=== PATIENT | male | born 1945 | race Caucasian/White ===

== ENCOUNTER 2021-05-31 09:20 | Inpatient (IN) | payer MEDICARE, OTHER ==
[2021-05-26 11:59] LABS: BASOPHILS % (AUTO) 0.6 % (0-1); EOSINOPHILS # (AUTO) 0.1 X10'3 (0-0.9); EOSINOPHILS % (AUTO) 1.3 % (0-6); LYMPHOCYTES # (AUTO) 1.5 X10'3 (1.1-4.8); LYMPHOCYTES % (AUTO) 27.2 % (21-51); MEAN CORPUSCULAR VOLUME 97.2 FL (78-98); MEAN PLATELET VOLUME 8.4 FL (7.4-10.4); MONOCYTES # (AUTO) 0.7 X10'3 (0-0.9); MONOCYTES % (AUTO) 13.2 % (2-12); NEUTROPHILS # (AUTO) 3.1 X10'3 (1.8-7.7); NEUTROPHILS % (AUTO) 57.7 % (42-75); PRE OP HEMATOCRIT 43.1 % (42.0-52.0); PRE OP HEMOGLOBIN 14.6 g/dL (14.0-17.9); PRE OP PLATELET COUNT 205 X10'3 (140-440); RED BLOOD COUNT 4.44 X10'6 (4.70-6.10); RED CELL DISTRIBUTION WIDTH 13.1 % (11.5-14.5)
[2021-05-26 12:11] LABS: CLARITY,URINE CLOUDY (Clear); COLOR,URINE YELLOW (Yellow); GLUCOSE, URINE NEGATIVE (Neg); KETONES,URINE NEGATIVE (Neg); LEUKOCYTE ESTERASE ,URINE NEGATIVE (Neg); NITRITES, URINE NEGATIVE (Neg); OCCULT BLOOD,URINE NEGATIVE (Neg); PROTEIN,URINE 30 mg/dl (Neg); UA COLLECTION TYPE VOIDED; UROBILINOGEN,URINE 0.2 E.U/dL (0.2-1.0)
[2021-05-26 12:29] LABS: ALBUMIN 3.6 G/DL (3.4-5.0); ALBUMIN/GLOBULIN RATIO 1.1 (1.1-1.5); ALKALINE PHOSPHATASE 112 IU/L (46-116); BLOOD UREA NITROGEN 13 MG/DL (7-18); BUN/CREATININE RATIO 11.7 (5.4-32.0); CALCIUM 8.9 MG/DL (8.5-10.1); CHLORIDE 106 MMOL/L (99-107); CREATININE 1.11 MG/DL (0.60-1.10); PRE OP ALT 26 U/L (30-65); PRE OP ANION GAP 7 (8-16); PRE OP AST 18 U/L (10-37); PRE OP GLUCOSE 107 MG/DL (70-104); PRE OP POTASSIUM 4.1 MMOL/L (3.4-5.1); PRE OP SODIUM 140 MMOL/L (135-145); TOTAL CARBON DIOXIDE 26.8 MMOL/L (24-32); TOTAL PROTEIN 6.8 G/DL (6.4-8.2); eGFR 64 ML/MIN
[2021-05-26 12:36] LABS: HYALINE CASTS >30 /LPF (NEGATIVE); MUCUS STRANDS MANY /LPF (Neg); SQUAMOUS EPITHELIAL CELL,UR FEW /LPF (FEW)
[2021-05-26 12:37] LABS: BACTERIA,URINE 1+ /HPF (Neg); RBC,URINE 0-2 /HPF (0-2); WBC,URINE 0-4 /HPF (0-4)
[2021-05-26 13:24] LABS: PRE OP PROTIME 9.9 SECONDS (9.0-12.0)
[~2021-05-31] VITALS: Ht 180.3 cm; Wt 94.8 kg
[~2021-05-31 09:20] MED LIST: ALBU8.5H17 INH; ASCO-134 PO; ASPI-1265 PO; CHOL10006 PO; DICL100G30 TOP; MAGN100T6 PO; MULT-1085 PO; OMEG1CAP46 PO; PARO-62 PO; albuterol 2.5 MG/3 ML nebule NEB PRN; cefazolin/dext.iso 2gm/50ml 50 ML IV ONE; famotidine 20mg tablet PO ONE; ringers solution, lacted 1,000 ML IV SCH
[2021-06-08] VITALS (13 sets, daily range): BP systolic 140–160; BP diastolic 52–88
[2021-06-08] MEDS ORDERED: ringers solution, lacted 1,000 ML IV SCH ×2 (05:30→15:20)
[2021-06-08] MEDS ORDERED: famotidine 20mg tablet PO ONE (05:30)
[2021-06-08] MEDS ORDERED: albuterol 2.5 MG/3 ML nebule NEB PRN ×2 (05:30→17:20)
[2021-06-08] MEDS ORDERED: cefazolin/dext.iso 2gm/50ml 50 ML IV ONE ×2 (05:30→10:20)
[2021-06-08] MEDS ORDERED: LIDOcaine 1% (10mg/ml) 2ml vial ONE (11:09)
[2021-06-08] MEDS ORDERED: BUPIVAcaine/PF 2.5 mg/ml (0.25%) 30ml vial ONE (11:11)
[2021-06-08] MEDS ORDERED: BUPIVACAINE liposomal/PF 13.3 MG/ML vial IM ONE ×2 (11:12→15:43)
[2021-06-08] MEDS ORDERED: BUPIVAcaine/PF 2.5mg/ml (0.25%) 10ml vial ONE (11:12)
[2021-06-08] MEDS ORDERED: CISatracurium 10mg/ml inj.***infusion only IV ONE (12:00)
[2021-06-08] MEDS ORDERED: neostigmine methylsulfate 1 MG/ML 10ml vial ONE (12:00)
[2021-06-08] MEDS ORDERED: sevoflurane 250ml liquid IH ONE (12:00)
[2021-06-08] MEDS ORDERED: glycopyrrolate 0.2mg/ml inj ONE (12:00)
[2021-06-08] MEDS ORDERED: dexamethasone sod phosphate 10mg/ml inj ONE (12:00)
[2021-06-08] MEDS ORDERED: acetaminophen 1000 MG/100ml vial IV ONE (12:00)
[2021-06-08] MEDS ORDERED: rocuronium 10mg/ml inj IV ONE ×2 (12:00→12:42)
[2021-06-08] MEDS ORDERED: fentaNYL /PF 50mcg/ml 5ml ampule ONE ×2 (12:07→13:45)
[2021-06-08] MEDS ORDERED: MIDAZolam 1 MG/ML 5ML VIAL ONE (12:07)
[2021-06-08] MEDS ORDERED: LIDOcaine 2% (20mg/ml) 5ml vial ONE (12:40)
[2021-06-08] MEDS ORDERED: propofol inj 20 ML IV ONE (12:40)
[2021-06-08] MEDS ORDERED: ondansetron/PF 4mg/2ml inj ONE (12:58)
[2021-06-08] MEDS ORDERED: INDOCYANINE GREEN 25 MG/10 ML VIAL IV ONE (13:20)
[2021-06-08] MEDS ORDERED: albumin (Human) 5% 250ml 250 ML IV ONE ×2 (14:35→16:48)
[2021-06-08] MEDS ORDERED: meperidine/PF 25mg/ml syringe IV PRN ×3 (15:20)
[2021-06-08] MEDS ORDERED: morphine 2 MG/ML inj. syringe IV PRN (15:20)
[2021-06-08] MEDS ORDERED: morphine 4 MG/ML inj SYRINge IV PRN ×3 (15:20→17:20)
[2021-06-08] MEDS ORDERED: proCHLORperazine 10 MG/2 ml inj IV PRN (15:20)
[2021-06-08] MEDS ORDERED: ondansetron/PF 4mg/2ml inj IV PRN ×2 (15:20→17:20)
[2021-06-08] MEDS ORDERED: morphine 4 MG/ML inj SYRINge ONE (16:15)
[2021-06-08] MEDS ORDERED: ceFAZolin 1000mg inj ONE (16:51)
[2021-06-08] MEDS ORDERED: metoclopramide 5 mg/ml inj IV PRN (17:20)
[2021-06-08] MEDS ORDERED: naloxone 0.4 mg/ml inj IV PRN (17:20)
[2021-06-08] MEDS ORDERED: CADD PCA waste documentation MC PRN (17:20)
[2021-06-08] MEDS ORDERED: sugammadex 200mg/2ml injection IV ONE (17:22)
[2021-06-08] MEDS ORDERED: ipratropium/albuterol 3ml nebule IH ONE (17:45)
--- NOTE | 2021-06-08 17:50 | NUR ---
Received from OR via , accompanied by Anesthesiologist and report given by Anesthesiolgist. PATIENT WAKING UP C/O PAIN, V/S STABLE, NEUROVASCULAR CHECKS INTACT, LEFT SIDE CHEST TUBE TO 20CM SUCTION CDI WITH NO BUBBLES BUT FLOAT FLUCTUATING WITH RR. JANIA AWARE OF THIS AND CREPTUS TO LEFT SIDE OF CHEST AND CURRENT CT OUTPUT., CHEST XRY DONE AND VIEWED BY DR WOODRUFF, 140CC IN CHEST TUBE.RT TO DRAW ABG AND GIVE RT TX. DR DYKES JUST WALKED INTO TO ASSESS PATIENT. F/C DRAINING CLEAR YELLOW URINE. ART LINE TO RUE. CENTRAL LINE RIGHT NECK. 18G RUE. SCD ON.
[2021-06-08 18:19] LABS: ABG BASE EXCESS -4.8 mmol/L (-2.0-2.0); ABG HCO3 24.2 mmol/L (22.0-26.0); ABG OXYGEN SATURATION 95.1 % (94-97); ABG PCO2 (T) 62.6 mmHg (35.0-48.0); FCOHb 0.3 % (0.0-3.9); FLOW 8 L/min; FMetHb 0.5 % (0.0-1.5); FO2Hb 94.3 % (94-97); PATIENT TEMPERATURE 36.7
--- NOTE | 2021-06-08 18:32 | NUR ---
DR WOODRUFF HAS REVIEWED ABG, INSTRUCTIONS TO CONTINUE TO AWAKEN PATIENT AND ENCOURAGE COUGH AND DEEP BREATH OFTEN AND RT TX ORDERED AND KEEP ON PULSE OX AND CO2 MONITOR
--- NOTE | 2021-06-08 18:50 | NUR ---
PATIENT SLEEPY BUT FOLLOWS COMMANDS WELL, DENIES PAIN, V/S STABLE, NEUROVASCULAR CHECKS INTACT, LEFT SIDE CHEST TUBE TO 20CM SUCTION CDI WITH NO BUBBLES BUT FLOAT FLUCTUATING WITH RR. BRUSETT AWARE OF THIS AND CREPTUS TO LEFT SIDE OF CHEST AND CURRENT CHEST TUBE OUTPUT.RT TO DRAW REPEAT ABG AT 1915. F/C DRAINING CLEAR YELLOW URINE. ART LINE TO RUE. CENTRAL LINE RIGHT NECK. 18G RUE. SCD ON. F/C DRAININAG CLEAR YELLOW URINE. PATIENT TAKEN TO 242 AND HOOKED UP TO MONITORS IN ROOM AND REPORT GIVEN TO RN WHO HAS TAKEN OVER PATIENT CARE.
--- NOTE | 2021-06-08 18:55 | NUR ---
Patient in room ICU 2041. I have received report from Roe DE LA GARZA and had the opportunity to ask questions and assume patient care. Patient in bed, restless but denies pain and follows commands. BP and HR in stable condition. Chest tube hooked to suction, currently has 250 cc's total in pleurovac. Art and CVP lines transduced with good waveform. Will continue to monitor patient.
[2021-06-08 19:33] LABS: ABG HCO3 22.2 mmol/L (22.0-26.0); ABG OXYGEN SATURATION 96.2 % (94-97); ABG PCO2 (T) 46.3 mmHg (35.0-48.0); ABG PO2 (T) 94.2 mmHg (75.0-100.0); FLOW 10 L/min; FMetHb 0.4 % (0.0-1.5); FO2Hb 95.8 % (94-97); PATIENT TEMPERATURE 37.6; TOTAL HEMOGLOBIN 12.9 G/dl (14.0-18.0)
[2021-06-08] MEDS: gabapentin 300mg capsule PO SCH (21:16)
[2021-06-08] MEDS: docusate sod 100mg capsule PO SCH (21:16)
[2021-06-08] MEDS: potassium Cl 20mEq in D5-NS 1,000 ML IV SCH (21:16)
[2021-06-09] VITALS (23 sets, daily range): BP systolic 85–142; BP diastolic 43–83
[2021-06-09] MEDS: ceFAZolin inj. 1,000 MG in dextrose 5%-water 50ml 50 ML IV SCH ×2 (00:32→06:47)
[2021-06-09 03:13] LABS: BASOPHILS % (AUTO) 0 % (0-1); EOSINOPHILS % (AUTO) 0 % (0-6); HEMATOCRIT 34.4 % (42.0-52.0); HEMOGLOBIN 11.6 g/dl (14.0-17.9); LYMPHOCYTES # (AUTO) 0.6 X10'3 (1.1-4.8); LYMPHOCYTES % (AUTO) 6.5 % (21-51); MEAN CORPUSCULAR HEMOGLOBIN 32.6 PG (27.0-31.0); MEAN CORPUSCULAR HGB CONC 33.8 g/dL (33.0-36.5); MEAN CORPUSCULAR VOLUME 96.6 FL (78-98); MEAN PLATELET VOLUME 9.1 FL (7.4-10.4); MONOCYTES % (AUTO) 10.5 % (2-12); NEUTROPHILS # (AUTO) 7.9 X10'3 (1.8-7.7); PLATELET COUNT 138 X10'3 (140-440); RED BLOOD COUNT 3.56 X10'6 (4.70-6.10); RED CELL DISTRIBUTION WIDTH 13.1 % (11.5-14.5); WHITE BLOOD COUNT 9.5 X10'3 (4.5-11.0)
[2021-06-09 03:26] LABS: ALANINE AMINOTRANSFERASE 27 U/L (12-78); ALBUMIN/GLOBULIN RATIO 1.1 (1.1-1.5); ALKALINE PHOSPHATASE 58 IU/L (46-116); ANION GAP 9 (8-16); BILIRUBIN,TOTAL 1.4 MG/DL (0.1-1.0); BLOOD UREA NITROGEN 12 MG/DL (7-18); BUN/CREATININE RATIO 11.3 (5.4-32.0); CALCIUM 7.6 MG/DL (8.5-10.1); CHLORIDE 108 MMOL/L (99-107); CREATININE 1.06 MG/DL (0.60-1.10); GLUCOSE 172 MG/DL (70-104); MAGNESIUM 1.8 MG/DL (1.5-2.4); SODIUM 142 MMOL/L (135-145); TOTAL CARBON DIOXIDE 24.8 MMOL/L (24-32); TOTAL PROTEIN 5.8 G/DL (6.4-8.2); eGFR 68 ML/MIN
[2021-06-09 03:30] LABS: ASPARTATE AMINO TRANSFERASE 56 U/L (10-37); PHOSPHORUS 3.3 MG/DL (2.3-4.5); POTASSIUM 4.9 MMOL/L (3.5-5.1)
[2021-06-09] MEDS: potassium Cl 20mEq in D5-NS 1,000 ML IV SCH (05:50)
--- NOTE | 2021-06-09 06:25 | NUR ---
Problems reprioritized. Patient report given, questions answered & plan of care reviewed with Douglas DE LA GARZA.
[2021-06-09] MEDS: HYDROcodone/acetaminophen 10/325mg tab PO PRN ×3 (06:46→19:24)
[2021-06-09] MEDS: gabapentin 300mg capsule PO SCH ×2 (06:47→19:22)
[2021-06-09] MEDS: docusate sod 100mg capsule PO SCH ×2 (06:47→19:22)
--- NOTE | 2021-06-09 18:25 | NUR ---
Received report from day shift RN. Pt A&ox4, VSS on 4L NC. Bed low and locked. Chest tube intact and draining. at bedside.
--- NOTE | 2021-06-09 20:33 | NUR ---
PT found lying down on the floor next to the bed. States he tried to move the bed and turn off the light. Denies head trauma and loss of consciousness. States he felt weak and slid down. Pt lifted back to bed with Dalia DE LA GARZA. Chest tube site bleeding. Dressing reinforced. Reinforced to patient not to get OOB without help and bed alarm on.
--- NOTE | 2021-06-09 23:07 | NUR ---
CXR ordered. Chest tube still intact and in the proper position. Dr San made aware. No new orders.
[2021-06-10] VITALS (17 sets, daily range): BP systolic 101–165; BP diastolic 48–115
[2021-06-10 04:12] LABS: BASOPHILS % (AUTO) 0.2 % (0-1); EOSINOPHILS % (AUTO) 0.1 % (0-6); HEMOGLOBIN 11.5 g/dl (14.0-17.9); LYMPHOCYTES % (AUTO) 10.4 % (21-51); MEAN CORPUSCULAR HEMOGLOBIN 32.8 PG (27.0-31.0); MEAN CORPUSCULAR HGB CONC 33.9 g/dL (33.0-36.5); MEAN CORPUSCULAR VOLUME 96.5 FL (78-98); MEAN PLATELET VOLUME 9.4 FL (7.4-10.4); MONOCYTES # (AUTO) 0.9 X10'3 (0-0.9); MONOCYTES % (AUTO) 9.6 % (2-12); NEUTROPHILS # (AUTO) 7.4 X10'3 (1.8-7.7); NEUTROPHILS % (AUTO) 79.7 % (42-75); PLATELET COUNT 132 X10'3 (140-440); RED BLOOD COUNT 3.52 X10'6 (4.70-6.10); RED CELL DISTRIBUTION WIDTH 13.3 % (11.5-14.5); WHITE BLOOD COUNT 9.3 X10'3 (4.5-11.0)
[2021-06-10 04:30] LABS: ALANINE AMINOTRANSFERASE 25 U/L (12-78); ALBUMIN 2.9 G/DL (3.4-5.0); ALKALINE PHOSPHATASE 64 IU/L (46-116); ANION GAP 5 (8-16); ASPARTATE AMINO TRANSFERASE 49 U/L (10-37); BILIRUBIN,TOTAL 1.7 MG/DL (0.1-1.0); BLOOD UREA NITROGEN 13 MG/DL (7-18); BUN/CREATININE RATIO 12.5 (5.4-32.0); CALCIUM 8.1 MG/DL (8.5-10.1); CHLORIDE 101 MMOL/L (99-107); CREATININE 1.04 MG/DL (0.60-1.10); GLUCOSE 117 MG/DL (70-104); MAGNESIUM 2.1 MG/DL (1.5-2.4); PHOSPHORUS 2.2 MG/DL (2.3-4.5); POTASSIUM 3.8 MMOL/L (3.5-5.1); SODIUM 135 MMOL/L (135-145); TOTAL CARBON DIOXIDE 28.7 MMOL/L (24-32); TOTAL PROTEIN 5.9 G/DL (6.4-8.2); eGFR 69 ML/MIN
--- NOTE | 2021-06-10 06:29 | NUR ---
Patient in room ICU 2041. I have received report from Bart DE LA GARZA and had the opportunity to ask questions and assume patient care.
[2021-06-10] MEDS ORDERED: ALBUTEROL INHALER 1 PUFF/90 MCG INHALER IH PRN (06:50)
[2021-06-10] MEDS ORDERED: MAGNESIUM CITRATE PO SCH (08:00)
[2021-06-10] MEDS: DICLOFENAC SODIUM TOP SCH ×4 (08:00→21:00)
[2021-06-10] MEDS: OMEGA-3/DHA/EPA/FISH OIL 1 EACH CAPSULE.DR PO SCH (09:00)
[2021-06-10] MEDS: aspirin 81mg tab.chew PO SCH (09:00)
[2021-06-10] MEDS: gabapentin 300mg capsule PO SCH (09:01)
[2021-06-10] MEDS: HYDROcodone/acetaminophen 10/325mg tab PO PRN ×2 (09:01→17:37)
[2021-06-10] MEDS: PARoxetine 20mg tablet PO SCH (09:01)
[2021-06-10] MEDS: multivitamins, therapeutics tablet PO SCH (09:01)
[2021-06-10] MEDS: docusate sod 100mg capsule PO SCH ×2 (09:01→20:00)
[2021-06-10] MEDS: ascorbic acid 500mg tablet PO SCH (09:02)
[2021-06-10] MEDS: cholecalciferol (vitamin D3) 1,000 unit (25mcg) tablet PO SCH (09:02)
--- NOTE | 2021-06-10 12:03 | NUR ---
Patient to OR accompanied by Dr. Stewart.
--- NOTE | 2021-06-10 12:04 | NUR ---
Previous note entered in error on wrong patient.
[2021-06-10] MEDS: furosemide 20 MG/2 ML vial IV SCH ×2 (12:22→20:00)
--- NOTE | 2021-06-10 15:00 | NUR ---
Report given to Marine DE LA GARZA. Patient continues confused. Restless and frequently picking at items. Sitter at bedside. Sats in high 90's on 4L n/c. Chest tube patent with small intermittent air leak. Encouraged IS & flutter valve with patient. Good effort. Patient up in chair x 6 hours. Ambulated with PT. Patient transferred to room 3011 via w/c. All belongings with patient.
--- NOTE | 2021-06-10 18:25 | NUR ---
Problems reprioritized. Patient report given, questions answered & plan of care reviewed with FREDERIC SEPULVEDA.
[2021-06-11 03:00] VITALS: BP 132/62
[2021-06-11 06:30] LABS: BASOPHILS % (AUTO) 0.4 % (0-1); EOSINOPHILS # (AUTO) 0.1 X10'3 (0-0.9); EOSINOPHILS % (AUTO) 0.8 % (0-6); HEMATOCRIT 32.1 % (42.0-52.0); LYMPHOCYTES # (AUTO) 0.8 X10'3 (1.1-4.8); MEAN CORPUSCULAR HEMOGLOBIN 32.9 PG (27.0-31.0); MEAN CORPUSCULAR HGB CONC 34.4 g/dL (33.0-36.5); MEAN CORPUSCULAR VOLUME 95.7 FL (78-98); MONOCYTES # (AUTO) 0.9 X10'3 (0-0.9); MONOCYTES % (AUTO) 11.6 % (2-12); NEUTROPHILS # (AUTO) 5.6 X10'3 (1.8-7.7); NEUTROPHILS % (AUTO) 76.2 % (42-75); PLATELET COUNT 128 X10'3 (140-440); RED BLOOD COUNT 3.35 X10'6 (4.70-6.10); WHITE BLOOD COUNT 7.4 X10'3 (4.5-11.0)
[2021-06-11 06:59] LABS: ALANINE AMINOTRANSFERASE 26 U/L (12-78); ALBUMIN 2.4 G/DL (3.4-5.0); ALBUMIN/GLOBULIN RATIO 0.7 (1.1-1.5); ALKALINE PHOSPHATASE 66 IU/L (46-116); ANION GAP 6 (8-16); ASPARTATE AMINO TRANSFERASE 37 U/L (10-37); BILIRUBIN,TOTAL 1.4 MG/DL (0.1-1.0); BLOOD UREA NITROGEN 10 MG/DL (7-18); BUN/CREATININE RATIO 11.6 (5.4-32.0); CALCIUM 8.2 MG/DL (8.5-10.1); CHLORIDE 105 MMOL/L (99-107); CREATININE 0.86 MG/DL (0.60-1.10); GLUCOSE 111 MG/DL (70-104); MAGNESIUM 2.2 MG/DL (1.5-2.4); PHOSPHORUS 1.5 MG/DL (2.3-4.5); POTASSIUM 3.7 MMOL/L (3.5-5.1); SODIUM 142 MMOL/L (135-145); TOTAL CARBON DIOXIDE 30.7 MMOL/L (24-32); TOTAL PROTEIN 5.8 G/DL (6.4-8.2); eGFR 86 ML/MIN
[2021-06-11] MEDS: DICLOFENAC SODIUM TOP SCH ×4 (08:00→21:00)
[2021-06-11] MEDS: multivitamins, therapeutics tablet PO SCH (09:30)
[2021-06-11] MEDS: furosemide 20 MG/2 ML vial IV SCH ×2 (09:30→21:15)
[2021-06-11] MEDS: PARoxetine 20mg tablet PO SCH (09:31)
[2021-06-11] MEDS: OMEGA-3/DHA/EPA/FISH OIL 1 EACH CAPSULE.DR PO SCH (09:31)
[2021-06-11] MEDS: cholecalciferol (vitamin D3) 1,000 unit (25mcg) tablet PO SCH (09:31)
[2021-06-11] MEDS: ascorbic acid 500mg tablet PO SCH (09:32)
[2021-06-11] MEDS: aspirin 81mg tab.chew PO SCH (09:32)
[2021-06-11] MEDS: docusate sod 100mg capsule PO SCH ×2 (09:32→21:15)
[2021-06-11 11:00] VITALS: BP 162/77
--- NOTE | 2021-06-11 18:14 | NUR ---
Problems reprioritized. Patient report given, questions answered & plan of care reviewed with DERICK DE LA GARZA.
[2021-06-11 19:00] VITALS: BP 153/92
[2021-06-11 23:00] VITALS: BP 169/79
[2021-06-12 06:55] VITALS: BP 144/61
[2021-06-12 07:30] LABS: BASOPHILS % (AUTO) 0.2 % (0-1); EOSINOPHILS # (AUTO) 0.1 X10'3 (0-0.9); EOSINOPHILS % (AUTO) 0.8 % (0-6); LYMPHOCYTES % (AUTO) 15.1 % (21-51); MEAN CORPUSCULAR HEMOGLOBIN 32.8 PG (27.0-31.0); MEAN CORPUSCULAR HGB CONC 34.4 g/dL (33.0-36.5); MEAN CORPUSCULAR VOLUME 95.3 FL (78-98); MEAN PLATELET VOLUME 8.8 FL (7.4-10.4); MONOCYTES # (AUTO) 0.9 X10'3 (0-0.9); MONOCYTES % (AUTO) 12.7 % (2-12); NEUTROPHILS # (AUTO) 4.9 X10'3 (1.8-7.7); NEUTROPHILS % (AUTO) 71.2 % (42-75); PLATELET COUNT 169 X10'3 (140-440); RED BLOOD COUNT 3.68 X10'6 (4.70-6.10); RED CELL DISTRIBUTION WIDTH 12.8 % (11.5-14.5); WHITE BLOOD COUNT 6.9 X10'3 (4.5-11.0)
[2021-06-12 07:54] LABS: ALANINE AMINOTRANSFERASE 29 U/L (12-78); ALBUMIN 2.6 G/DL (3.4-5.0); ALBUMIN/GLOBULIN RATIO 0.7 (1.1-1.5); ALKALINE PHOSPHATASE 68 IU/L (46-116); ANION GAP 5 (8-16); ASPARTATE AMINO TRANSFERASE 31 U/L (10-37); BILIRUBIN,TOTAL 1.6 MG/DL (0.1-1.0); BLOOD UREA NITROGEN 10 MG/DL (7-18); BUN/CREATININE RATIO 11.2 (5.4-32.0); CALCIUM 8.7 MG/DL (8.5-10.1); CHLORIDE 104 MMOL/L (99-107); CREATININE 0.89 MG/DL (0.60-1.10); GLUCOSE 107 MG/DL (70-104); MAGNESIUM 2.3 MG/DL (1.5-2.4); PHOSPHORUS 2.3 MG/DL (2.3-4.5); POTASSIUM 3.3 MMOL/L (3.5-5.1); SODIUM 142 MMOL/L (135-145); TOTAL PROTEIN 6.5 G/DL (6.4-8.2); eGFR 83 ML/MIN
[2021-06-12] MEDS: DICLOFENAC SODIUM TOP SCH ×4 (08:00→21:00)
[2021-06-12] MEDS: furosemide 20 MG/2 ML vial IV SCH ×2 (08:00→20:30)
[2021-06-12] MEDS ORDERED: traMADol 50MG tablet PO PRN (08:35)
[2021-06-12] MEDS ORDERED: potassium Cl 20 mEq SR tablet PO PRN (09:10)
[2021-06-12] MEDS ORDERED: potassium Cl 40MEQ/1/2NS 520ml 520 ML IV PRN ×2 (09:10)
[2021-06-12] MEDS: OMEGA-3/DHA/EPA/FISH OIL 1 EACH CAPSULE.DR PO SCH (09:43)
[2021-06-12] MEDS: aspirin 81mg tab.chew PO SCH (09:44)
[2021-06-12] MEDS: multivitamins, therapeutics tablet PO SCH (09:44)
[2021-06-12] MEDS: ascorbic acid 500mg tablet PO SCH (09:44)
[2021-06-12] MEDS: potassium Cl 20 mEq SR tablet PO PRN ×3 (09:44→20:31)
[2021-06-12] MEDS: cholecalciferol (vitamin D3) 1,000 unit (25mcg) tablet PO SCH (09:44)
[2021-06-12] MEDS: docusate sod 100mg capsule PO SCH ×2 (09:45→20:30)
[2021-06-12] MEDS: PARoxetine 20mg tablet PO SCH (09:45)
[2021-06-12 11:00] VITALS: BP 121/66
[2021-06-12 15:00] VITALS: BP 126/71
[2021-06-12] MEDS ORDERED: magnesium citrate 296ml oral solution PO ONE (16:30)
[2021-06-12 18:00] VITALS: BP 127/74
[2021-06-12] MEDS: K and/or MAG REPLACEMENT MC SCH (20:31)
[2021-06-12 22:00] VITALS: BP 130/84
[2021-06-13 02:00] VITALS: BP 136/65
[2021-06-13 07:00] VITALS: BP 147/87
[2021-06-13] MEDS: ascorbic acid 500mg tablet PO SCH (08:00)
[2021-06-13] MEDS: cholecalciferol (vitamin D3) 1,000 unit (25mcg) tablet PO SCH (08:00)
[2021-06-13] MEDS: aspirin 81mg tab.chew PO SCH (08:00)
[2021-06-13] MEDS: docusate sod 100mg capsule PO SCH ×2 (08:00→21:17)
[2021-06-13] MEDS: OMEGA-3/DHA/EPA/FISH OIL 1 EACH CAPSULE.DR PO SCH (08:00)
[2021-06-13] MEDS: furosemide 20 MG/2 ML vial IV SCH ×2 (08:00→21:17)
[2021-06-13] MEDS: PARoxetine 20mg tablet PO SCH (08:00)
[2021-06-13] MEDS: multivitamins, therapeutics tablet PO SCH (08:00)
[2021-06-13] MEDS: K and/or MAG REPLACEMENT MC SCH ×2 (08:00→20:00)
[2021-06-13 10:17] LABS: BASOPHILS % (AUTO) 0.5 % (0-1); EOSINOPHILS # (AUTO) 0.1 X10'3 (0-0.9); EOSINOPHILS % (AUTO) 0.8 % (0-6); HEMATOCRIT 37.9 % (42.0-52.0); HEMOGLOBIN 12.9 g/dl (14.0-17.9); LYMPHOCYTES # (AUTO) 1.2 X10'3 (1.1-4.8); LYMPHOCYTES % (AUTO) 17.2 % (21-51); MEAN CORPUSCULAR HEMOGLOBIN 32.6 PG (27.0-31.0); MEAN CORPUSCULAR HGB CONC 34.2 g/dL (33.0-36.5); MEAN CORPUSCULAR VOLUME 95.5 FL (78-98); MEAN PLATELET VOLUME 7.7 FL (7.4-10.4); MONOCYTES # (AUTO) 0.9 X10'3 (0-0.9); MONOCYTES % (AUTO) 13.6 % (2-12); NEUTROPHILS # (AUTO) 4.7 X10'3 (1.8-7.7); NEUTROPHILS % (AUTO) 67.9 % (42-75); PLATELET COUNT 230 X10'3 (140-440); RED BLOOD COUNT 3.97 X10'6 (4.70-6.10); RED CELL DISTRIBUTION WIDTH 12.9 % (11.5-14.5); WHITE BLOOD COUNT 6.9 X10'3 (4.5-11.0)
[2021-06-13 10:29] LABS: ALANINE AMINOTRANSFERASE 28 U/L (12-78); ALBUMIN 2.8 G/DL (3.4-5.0); ALBUMIN/GLOBULIN RATIO 0.7 (1.1-1.5); ALKALINE PHOSPHATASE 69 IU/L (46-116); ANION GAP 7 (8-16); ASPARTATE AMINO TRANSFERASE 24 U/L (10-37); BILIRUBIN,TOTAL 1.2 MG/DL (0.1-1.0); BLOOD UREA NITROGEN 18 MG/DL (7-18); BUN/CREATININE RATIO 18.6 (5.4-32.0); CHLORIDE 102 MMOL/L (99-107); CREATININE 0.97 MG/DL (0.60-1.10); GLUCOSE 135 MG/DL (70-104); MAGNESIUM 2.7 MG/DL (1.5-2.4); PHOSPHORUS 1.9 MG/DL (2.3-4.5); POTASSIUM 3.7 MMOL/L (3.5-5.1); SODIUM 140 MMOL/L (135-145); TOTAL CARBON DIOXIDE 31.3 MMOL/L (24-32); TOTAL PROTEIN 6.9 G/DL (6.4-8.2); eGFR 75 ML/MIN
--- NOTE | 2021-06-13 10:34 | NUR ---
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 Pt currently on Regular diet w/ avg intake 58% x 10 meals partially meeting needs; pt agreeable to Smoothies BID LD, dietary notified. No LBM documented though receiving routine colace. Will continue to monitor PO trends and make recommendations as appropriate. Recs: 1. Continue Regular diet as tolerated 2. Smoothies BID LD 3. Bowel care per rx 4. Weekly wts Addendum: 06/13/21 at [address] Amended: Links added.
[2021-06-13 11:00] VITALS: BP 135/77
[2021-06-13] MEDS: DICLOFENAC SODIUM TOP SCH ×4 (13:00→21:00)
[2021-06-13 18:00] VITALS: BP 134/68
[2021-06-13 22:00] VITALS: BP 135/77
[2021-06-14 02:00] VITALS: BP 132/74
--- NOTE | 2021-06-14 06:33 | NUR ---
Problems reprioritized. Patient report given, questions answered & plan of care reviewed with FREDERIC Mcgrath.
[2021-06-14 07:00] VITALS: BP 136/82
--- NOTE | 2021-06-14 07:09 | NUR ---
Patient in room PCU 3016. I have received report from Karen DE LA GARZA and had the opportunity to ask questions and assume patient care.
[2021-06-14] MEDS: cholecalciferol (vitamin D3) 1,000 unit (25mcg) tablet PO SCH (07:36)
[2021-06-14] MEDS: multivitamins, therapeutics tablet PO SCH (07:36)
[2021-06-14] MEDS: aspirin 81mg tab.chew PO SCH (07:36)
[2021-06-14] MEDS: PARoxetine 20mg tablet PO SCH (07:36)
[2021-06-14] MEDS: ascorbic acid 500mg tablet PO SCH (07:36)
[2021-06-14] MEDS: docusate sod 100mg capsule PO SCH (07:36)
[2021-06-14] MEDS: furosemide 20 MG/2 ML vial IV SCH (07:36)
[2021-06-14] MEDS: OMEGA-3/DHA/EPA/FISH OIL 1 EACH CAPSULE.DR PO SCH (07:36)
[2021-06-14] MEDS: DICLOFENAC SODIUM TOP SCH ×2 (07:37→13:00)
[2021-06-14] MEDS: K and/or MAG REPLACEMENT MC SCH (07:37)
[2021-06-14 11:00] VITALS: BP 129/69
--- NOTE | 2021-06-14 11:55 | NUR ---
O2 Sat at rest on room air:_87__% If below 89%: Recovery O2 Sat at rest on __2_LPM:__95_% via__NASAL CANNULA (mask/nasal cannula, etc..) No further documentation is necessary. If O2 Sat did not drop below 89% on room air,ambulate patient on room air. O2 Sat while ambulating on room air:___% Recovery O2 Sat while ambulating on ___LPM:___% No further documentation is necessary. If patient does not drop below 89% while ambulating, he/she does not qualify for home O2.
[2021-06-14 15:00] VITALS: BP 146/65
--- NOTE | 2021-06-14 17:54 | NUR ---
Patient stable for discharge per MD order, all discharge instructions reviewed with patient and all questions answered. PIV discontinued, cannula intact. Telemetry discontinued, telecommunication engineer notified. All belongings collected and sent with patient. Patient picked up by family memeber in private vehicle, wheeled to lobby by staff.
== END 2021-06-14 17:21 | disposition home or self-care (01) | DRG 165 ==
LOC: PAS IN 06-08 09:25 → UNDOADMIN 06-08 09:25 → PAS IN 06-08 17:23 → ICU 2S 06-08 18:50 → PAS IN 06-08 18:50 → PCU 3S 06-10 16:05
PROVIDERS: ADMIT Surgery; ATTEND Surgery
PROC: 8E0W4CZ Robotic Assisted Procedure of Trunk Region, Percutaneous Endoscopic Approach (ICD-10-PCS; 2021-06-08)
PROC: 07B74ZZ Excision of Thorax Lymphatic, Percutaneous Endoscopic Approach (ICD-10-PCS; 2021-06-08)
PROC: 0W9B40Z Drainage of Left Pleural Cavity with Drainage Device, Percutaneous Endoscopic Approach (ICD-10-PCS; 2021-06-08)
PROC: 0BTJ4ZZ Resection of Left Lower Lung Lobe, Percutaneous Endoscopic Approach (ICD-10-PCS; principal; 2021-06-08 12:00)
DX: C34.32 Malignant neoplasm of lower lobe, left bronchus or lung (principal); F41.9 Anxiety disorder, unspecified; M54.30 Sciatica, unspecified side; I10 Essential (primary) hypertension; M19.90 Unspecified osteoarthritis, unspecified site; F32.A Depression, unspecified; Z79.899 Other long term (current) drug therapy; Z98.49 Cataract extraction status, unspecified eye
CPT/HCPCS: 36415; 36600; 70450; 71045; 71046; 71250; 80053; 81001; 82803; 82948; 83735; 84100; 85018; 85025; 85610; 85730; 86885; 86900; 86901; 86920; 87081; 88305; 88307; 94640; 94668; 94760; 97110; 97116; 97161; 97530; A4618; A6258; A6449; A7000; A7048; C1758; C9250; C9290; C9399; G0378; J0131; J0690; J1100; J1940; J2001; J2175; J2250; J2270; J2405; J2704; J2710; J3010; J3480; J3490; J7060; J7120; P9045; U0003